=== PATIENT | female | born 1995 | race American Indian/Alaskan Native ===

== ENCOUNTER 2017-12-27 17:07 | Emergency (ER) | payer MEDICAID ==
[2017-12-27 17:26] VITALS: BMI 21.1
[2017-12-27] MEDS ORDERED: Naproxen 550 mg Tab PO STA (17:29)
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
[2017-12-27 18:10] VITALS: BP 117/66; PULSE 78; RESP 18; O2SAT 100
--- NOTE | 2017-12-27 18:23 | RAD ---
Date of service: 12/27/2017 PROCEDURE: Left Index finger radiographs. HISTORY: pain COMPARISON: None. TECHNIQUE: AP radiograph of the left hand, as well as spot oblique and lateral images of index finger were obtained. FINDINGS: LEFT INDEX FINGER: Normal left index finger, without fracture or focal lesion. Remainder of the left hand (as seen on the AP view) grossly intact. JOINTS: Normal. SOFT TISSUES: Normal. OTHER FINDINGS: None. IMPRESSION: Normal left index finger radiographs.
== END 2017-12-27 18:50 | disposition home or self-care (01) ==
LOC: ED 17:07 → MERGE 17:07 → ED 18:50
DX: S63.611A Unspecified sprain of left index finger, initial encounter (principal); Y04.0XXA Assault by unarmed brawl or fight, initial encounter; Y92.9 Unspecified place or not applicable